=== PATIENT | female | born 2000 | race American Indian/Alaskan Native ===

== ENCOUNTER 2021-03-15 13:33 | Emergency (ER) | payer OTHER, MEDICAID ==
[2021-03-15 17:00] VITALS: BP 113/77
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
== END 2021-03-15 18:20 | disposition home or self-care (01) ==
LOC: ED 13:33
DX: M54.2 Cervicalgia (principal); M54.5 Low back pain; Z98.890 Other specified postprocedural states; F17.200 Nicotine dependence, unspecified, uncomplicated; V89.2XXA Person injured in unspecified motor-vehicle accident, traffic, initial encounter; Y93.89 Activity, other specified; Y92.89 Other specified places as the place of occurrence of the external cause; Y99.8 Other external cause status
CPT/HCPCS: 99282

== ENCOUNTER 2021-05-02 18:25 | Emergency (ER) | payer MEDICAID, OTHER ==
--- NOTE | 2021-05-02 20:07 | Emergency Department Report ---
ED General Adult HPI - General Stated complaint: NO PERIOD 2 MO, CANT KEEP FOOD DOWN Time Seen by Provider: 05/02/21 20:05 - History of Present Illness Initial comments: 20-year-old female this emerge department complaining of having no. Since March 01 and presents emerge department seeking appendicitis. Patient states that rather than spending money for a test [id number] she will come to the emergency department and use her Medicaid she reports no pain, no fever, chills, sweats no vaginal bleeding, no vaginal discharge no no dysuria no hematuria no diarrhea no pelvic pain Improves with: none Worsens with: none Associated Symptoms: denies other symptoms - Related Data Previous Rx's Medication Instructions Recorded Last Taken Type Naproxen 500 mg PO BID PRN #20 tablet 03/15/21 Unknown Rx methocarbamoL [Methocarbamol] 750 mg PO TID PRN #15 tablet 03/15/21 Unknown Rx Allergies Allergy/AdvReac Type Severity Reaction Status Date / Time No Known Allergies Allergy Unverified 03/15/21 16:52 ED Review of Systems ROS: Stated complaint: NO PERIOD 2 MO, CANT KEEP FOOD DOWN Other details as noted in HPI Comment: All other systems reviewed and negative ED Past Medical Hx - Past Medical History Additional medical history: Vaginal delivery x 2 - Social History Smoking Status: Current Every Day Smoker Substance Use Type: Alcohol - Medications Home Medications: Home Medications Medication Instructions Recorded Confirmed Last Taken Type Naproxen 500 mg PO BID PRN #20 tablet 03/15/21 Unknown Rx methocarbamoL [Methocarbamol] 750 mg PO TID PRN #15 tablet 03/15/21 Unknown Rx ED Physical Exam - General General appearance: alert, in no apparent distress - Head Head exam: Present: atraumatic, normocephalic - Eye Eye exam: Present: normal appearance - ENT ENT exam: Present: mucous membranes moist - Neck Neck exam: Present: normal inspection - Respiratory Respiratory exam: Present: normal lung sounds bilaterally. Absent: respiratory distress - Cardiovascular Cardiovascular Exam: Present: regular rate, normal rhythm. Absent: systolic murmur, diastolic murmur, rubs, gallop - GI/Abdominal GI/Abdominal exam: Present: soft, normal bowel sounds - Extremities Exam Extremities exam: Present: normal inspection - Back Exam Back exam: Present: normal inspection - Neurological Exam Neurological exam: Present: alert, oriented X3 - Psychiatric Psychiatric exam: Present: normal affect, normal mood - Skin Skin exam: Present: warm, dry, intact, normal color. Absent: rash ED Course Vital Signs 05/02/21 05/02/21 05/02/21 20:01 21:08 21:10 Temperature 99.2 F 97.5 F L Pulse Rate 75 75 Respiratory 16 14 Rate Blood Pressure 120/69 Blood Pressure 137/77 [Right] O2 Sat by Pulse 100 98 99 Oximetry Critical care attestation.: If time is entered above; I have spent that time in minutes in the direct care of this critically ill patient, excluding procedure time. ED Disposition Clinical Impression: Positive test Disposition: HOME / SELF CARE / HOMELESS Is pt being admited?: No Does the pt Need Aspirin: No Condition: Stable Instructions: Home Test Information, Care Referrals: [facility] [Provider Group] - 3-5 Days
[2021-05-02 21:10] VITALS: BP 137/77
[2021-05-02 21:19] LABS: HCG Qualitative,Urine Positive (Negative)
== END 2021-05-02 22:06 | disposition home or self-care (01) ==
LOC: ED 18:25
DX: Z32.01 Encounter for pregnancy test, result positive (principal); F17.200 Nicotine dependence, unspecified, uncomplicated
CPT/HCPCS: 81025; 99283

== ENCOUNTER 2021-05-15 19:24 | Emergency (ER) | payer MEDICAID ==
[2021-05-15] MEDS ORDERED: SODIUM CHLORIDE 0.9% 1000 ML 1,000 ML IV ONE (20:31)
[2021-05-15] MEDS ORDERED: METOCLOPRAMIDE 10 MG/2 ML INJ IV ONE (20:31)
--- NOTE | 2021-05-15 20:35 | Emergency Department Report ---
ED N/V/D HPI - General Chief complaint: Nausea/Vomiting/Diarrhea Stated complaint: 7WKS PREG/EMESIS/NAUSEA Time Seen by Provider: 05/15/21 20:27 Source: patient, family Mode of arrival: Ambulatory Limitations: No Limitations - History of Present Illness Initial comments: Patient presents with a 3-week history of nausea, vomiting, and diarrhea. She states that she has not had fevers or chills. There is no history of recent travel or trauma. She is at 7 weeks. She is already gone to her scoop driver. She states that they gave her a prescription of "a little pill that made it worse." She only tried it once and has not taken that medicine again. She does not know the name of it. Patient states that they did do an ultrasound and the was in the uterus. She has not had any vaginal bleeding. There is no discharge. She has had no dysuria frequency. She is not having abdominal pain associate with this. There has been no hematemesis or coffee-ground emesis. There is no melanotic stool. - Related Data Previous Rx's Medication Instructions Recorded Last Taken Type Metoclopramide [Reglan] 10 mg PO ACHS PRN #30 tablet 05/15/21 Unknown Rx Allergies Allergy/AdvReac Type Severity Reaction Status Date / Time No Known Allergies Allergy Unverified 03/15/21 16:52 ED Review of Systems ROS: Stated complaint: 7WKS PREG/EMESIS/NAUSEA Other details as noted in HPI Comment: All other systems reviewed and negative Eyes: denies: vision change ENT: denies: throat pain Respiratory: denies: cough Cardiovascular: denies: chest pain Endocrine: denies: unexplained weight loss Gastrointestinal: as per HPI Genitourinary: denies: dysuria Musculoskeletal: denies: back pain Skin: denies: rash Neurological: denies: headache Hematological/Lymphatic: denies: easy bruising ED Past Medical Hx - Past Medical History Previous Medical History?: No Additional medical history: Vaginal delivery x 2 - Surgical History Past Surgical History?: No - Family History Family history: no significant - Social History Smoking Status: Current Every Day Smoker (We discussed tobacco cessation x3 minutes) Substance Use Type: Alcohol - Medications Home Medications: Home Medications Medication Instructions Recorded Confirmed Last Taken Type Metoclopramide [Reglan] 10 mg PO ACHS PRN #30 tablet 05/15/21 Unknown Rx ED Physical Exam - General Limitations: No Limitations, Other (Pulse ox is noted to normal. She is not hypoxic.) General appearance: alert, in no apparent distress - Head Head exam: Present: atraumatic, normocephalic, normal inspection - Eye Eye exam: Present: normal appearance, EOMI. Absent: scleral icterus - ENT ENT exam: Present: mucous membranes dry, normal external ear exam - Neck Neck exam: Present: normal inspection. Absent: meningismus - Respiratory Respiratory exam: Present: normal lung sounds bilaterally. Absent: respiratory distress - Cardiovascular Cardiovascular Exam: Present: regular rate, normal rhythm - GI/Abdominal GI/Abdominal exam: Present: soft. Absent: tenderness, guarding, rebound - Extremities Exam Extremities exam: Present: normal capillary refill. Absent: calf tenderness - Back Exam Back exam: Absent: CVA tenderness (R), CVA tenderness (L) - Neurological Exam Neurological exam: Present: alert, oriented X3, CN II-XII intact, normal gait, reflexes normal. Absent: motor sensory deficit - Psychiatric Psychiatric exam: Present: normal affect, normal mood - Skin Skin exam: Present: warm, dry ED Course Vital Signs 05/15/21 05/15/21 05/15/21 20:01 21:04 22:15 Temperature 98.8 F Pulse Rate 82 72 Respiratory 18 9 L 18 Rate Blood Pressure 108/69 Blood Pressure 114/76 [Left] O2 Sat by Pulse 100 100 100 Oximetry 05/15/21 22:18 Temperature Pulse Rate Respiratory Rate Blood Pressure Blood Pressure [Left] O2 Sat by Pulse 100 Oximetry - Reevaluation(s) Reevaluation #1: 05/15/21 20:33 IV metoclopramide were ordered. Reevaluation #2: 05/15/21 22:34 Patient tolerated liquids and was discharged. ED Medical Decision Making - Medical Decision Making Patient presents with nausea, vomiting, and diarrhea for 3 weeks. She states that she is . She is already had an outpatient ultrasound that confirms and confirms intrauterine nature of the . She is not having any abdominal pain. I do not believe repeat ultrasound is necessary. She has no dysuria or frequency. I do not believe UA is necessary at this time. Patient has been given hydration here. We have found medication that she can utilize at home. Critical Care Time: No Critical care attestation.: If time is entered above; I have spent that time in minutes in the direct care of this critically ill patient, excluding procedure time. ED Disposition Clinical Impression: Nausea vomiting and diarrhea Qualifiers: Weeks of gestation: less than 8 weeks Qualified Code(s): Z3A.01 - Less than 8 weeks gestation of Disposition: HOME / SELF CARE / HOMELESS Is pt being admited?: No Condition: Stable Instructions: Before Baby Comes Home, Food Choices to Help Relieve Diarrhea, Adult, How a Baby Grows During , Eating Plan for Women, Nausea and Vomiting, Adult Additional Instructions: Have a bland diet. Drink plenty of water. Return for problems. Follow-up with your regular doctor and your scoop driver for recheck. Prescriptions: Metoclopramide [Reglan] 10 mg PO ACHS PRN #30 tablet PRN Reason: Nausea Referrals: PRIMARY CARE, [Referring] - 3-5 Days VENU AU MD [Staff Physician] - 3-5 Days
[2021-05-15 22:18] VITALS: BP 114/76
== END 2021-05-15 22:52 | disposition home or self-care (01) ==
LOC: ED 19:24
DX: O21.8 Other vomiting complicating pregnancy (principal); O26.891 Other specified pregnancy related conditions, first trimester; Z3A.01 Less than 8 weeks gestation of pregnancy; R19.7 Diarrhea, unspecified
CPT/HCPCS: 96361; 96374; 99282; J2765; J7030

== ENCOUNTER 2022-03-03 09:49 | Emergency (ER) | payer MEDICAID ==
--- NOTE | 2022-03-03 11:16 | Emergency Department Report ---
Stated Complaint: BODY HURTS AFTER TAKING XPILLS Time Seen by Provider: 03/03/22 11:12 - HPI History of Present Illness: 21-year-old black female with no past medical history presents to the emergency department for evaluation of chest pain, body aches, chills, intermittent shortness of breath. She states that she took an ecstasy pill 5 days ago and has been having symptoms since then. She states that her boyfriend took the same pill and has been having the same symptoms. She denies fever, dizziness. - ROS Review of Systems: Complains of generalized chest pain, body aches and shortness of breath. Denies fever. - Exam Physical Exam: Awake alert and oriented x4. MSE screening note: Focused history and physical exam performed. Due to findings the following was ordered: EKG, CBC, CMP, troponin, and chest x- ray. . Patient evaluated by provider when she arrived to her room in the back. ED Disposition for MSE Condition: Stable
--- NOTE | 2022-03-03 11:55 | XRay Report ---
XR chest routine 2V INDICATION / CLINICAL INFORMATION: chest pain. COMPARISON: None available. FINDINGS: SUPPORT DEVICES: None. HEART /PULMONARY VASCULATURE: No significant abnormality. LUNGS / PLEURA: No significant pulmonary or pleural abnormality. No pneumothorax. ADDITIONAL FINDINGS: No significant additional findings. IMPRESSION: 1. No acute findings. Signer Name: Warren Bailey MD Signed: 03/03/2022 11:50 AM Workstation Name: [id number]
[2022-03-03 12:18] LABS: Hematocrit 39.9 % (30.3-42.9); Hemoglobin 12.7 gm/dl (10.1-14.3); Mean Corpuscular HGB Conc 32 % (30-34); Mean Corpuscular Volume 78 fl (79-97); Platelet Count 165 K/mm3 (140-440); Red Blood Count 5.09 M/mm3 (3.65-5.03)
[2022-03-03 12:26] LABS: Red Cell Distribution Width 20.7 % (13.2-15.2)
[2022-03-03 12:28] LABS: Alanine Aminotransferase 23 units/L (7-56); Albumin 4.3 g/dL (3.9-5); BUN/Creatinine Ratio 13; Blood Urea Nitrogen 21 mg/dL (7-17); Calcium 9.5 mg/dL (8.4-10.2); Hemolysis Index 6
[2022-03-03] MEDS ORDERED: LORazepam 2 MG/ML VIAL IV ONE (13:13)
[2022-03-03] MEDS ORDERED: KETOROLAC 30 MG/1 ML INJ IV ONE (13:13)
[2022-03-03] MEDS ORDERED: ONDANSETRON 4 MG/2 ML INJ IV ONE (13:13)
[2022-03-03] MEDS ORDERED: SODIUM CHLORIDE 0.9% 1000 ML 1,000 ML IV ONE (13:14)
[2022-03-03] MEDS ORDERED: MORPHINE 4 MG/1 ML INJ IV ONE (13:14)
--- NOTE | 2022-03-03 15:55 | Emergency Department Report ---
ED General Adult HPI - General Chief complaint: Chest Pain Stated complaint: BODY HURTS AFTER TAKING XPILLS Time Seen by Provider: 03/03/22 11:12 Source: patient Mode of arrival: Ambulatory Limitations: No Limitations - History of Present Illness Initial comments: Patient is a 21-year-old female with a history of anxiety who presents to the ED with complaint of diffuse body aches and pains, shortness of breath, headache after taking "ecstasy pills" about 5 days ago. Patient states that she has also been feeling generalized weakness and fatigue and lack of appetite. Patient denies dizziness, syncope, chest pain and hemoptysis, cough, sore throat, abdominal pain, dysuria, urinary frequency and urgency, change in vision, vaginal bleeding or lightheadedness. MD Complaint: Diffuse body aches and pains, nausea, shortness of breath, anxiety -: days(s) (5) Location: chest Radiation: non-radiation Severity scale (0 -10): 8 Quality: aching, sharp Consistency: constant Improves with: none Worsens with: none Associated Symptoms: denies other symptoms, loss of appetite, malaise, shortness of breath. denies: confusion, chest pain, cough, diaphoresis, fever/chills, headaches, nausea/vomiting, rash, seizure, syncope, weakness Treatments Prior to Arrival: none - Related Data Previous Rx's Medication Instructions Recorded Last Taken Type Metoclopramide [Reglan] 10 mg PO ACHS PRN #30 tablet 05/15/21 Unknown Rx Acetaminophen [Tylenol] 500 mg PO Q6HR PRN #30 tablet 03/03/22 Unknown Rx Ondansetron [Zofran Odt] 4 mg PO Q8HR PRN #15 tab.rapdis 03/03/22 Unknown Rx cephALEXin [Keflex] 500 mg PO Q6HR #40 capsule 03/03/22 Unknown Rx hydrOXYzine PAMOATE [Vistaril] 25 mg PO Q6HR PRN #40 capsule 03/03/22 Unknown Rx Allergies Allergy/AdvReac Type Severity Reaction Status Date / Time No Known Allergies Allergy Verified 03/03/22 11:21 ED Review of Systems ROS: Stated complaint: BODY HURTS AFTER TAKING XPILLS Other details as noted in HPI Constitutional: malaise, weakness. denies: chills, fever Eyes: denies: eye pain, eye discharge, vision change ENT: denies: ear pain, throat pain Respiratory: shortness of breath. denies: cough, wheezing Cardiovascular: denies: chest pain, palpitations Endocrine: no symptoms reported Gastrointestinal: denies: abdominal pain, nausea, vomiting, diarrhea Genitourinary: denies: urgency, dysuria, discharge Musculoskeletal: back pain, arthralgia, myalgia. denies: joint swelling Skin: denies: rash, lesions Neurological: headache. denies: weakness, paresthesias Psychiatric: anxiety. denies: depression, auditory hallucinations, visual hallucinations, suicidal thoughts Hematological/Lymphatic: denies: easy bleeding, easy bruising ED Past Medical Hx - Past Medical History Previous Medical History?: Yes Hx Psychiatric Treatment: Yes (Anxiety) Additional medical history: Vaginal delivery x 2 - Surgical History Past Surgical History?: No - Social History Smoking Status: Never Smoker - Medications Home Medications: Home Medications Medication Instructions Recorded Confirmed Last Taken Type Metoclopramide [Reglan] 10 mg PO ACHS PRN #30 tablet 05/15/21 Unknown Rx Acetaminophen [Tylenol] 500 mg PO Q6HR PRN #30 tablet 03/03/22 Unknown Rx Ondansetron [Zofran Odt] 4 mg PO Q8HR PRN #15 tab.rapdis 03/03/22 Unknown Rx cephALEXin [Keflex] 500 mg PO Q6HR #40 capsule 03/03/22 Unknown Rx hydrOXYzine PAMOATE [Vistaril] 25 mg PO Q6HR PRN #40 capsule 03/03/22 Unknown Rx ED Physical Exam - General Limitations: No Limitations General appearance: alert, in no apparent distress - Head Head exam: Present: atraumatic, normocephalic, normal inspection - Eye Eye exam: Present: normal appearance, PERRL, EOMI Pupils: Present: normal accommodation - ENT ENT exam: Present: normal exam, normal orophraynx, mucous membranes moist, TM's normal bilaterally, normal external ear exam - Neck Neck exam: Present: normal inspection, full ROM. Absent: tenderness - Respiratory Respiratory exam: Present: normal lung sounds bilaterally. Absent: respiratory distress, wheezes, rales, rhonchi, stridor, chest wall tenderness, accessory muscle use, decreased breath sounds, prolonged expiratory - Cardiovascular Cardiovascular Exam: Present: normal rhythm, tachycardia, normal heart sounds. Absent: systolic murmur, diastolic murmur, rubs, gallop - GI/Abdominal GI/Abdominal exam: Present: soft, normal bowel sounds. Absent: distended, tenderness, guarding, rebound, hyperactive bowel sounds, hypoactive bowel sounds, organomegaly - Extremities Exam Extremities exam: Present: normal inspection, full ROM, normal capillary refill. Absent: tenderness, pedal edema, joint swelling, calf tenderness - Back Exam Back exam: Present: normal inspection, full ROM. Absent: tenderness, CVA tenderness (R), CVA tenderness (L), muscle spasm, paraspinal tenderness, vertebral tenderness, rash noted - Neurological Exam Neurological exam: Present: alert, oriented X3, CN II-XII intact, normal gait, reflexes normal - Psychiatric Psychiatric exam: Present: normal affect, normal mood, anxious - Skin Skin exam: Present: warm, dry, intact, normal color. Absent: rash ED Course Vital Signs 03/03/22 03/03/22 03/03/22 11:17 16:42 16:48 Temperature 98.1 F 102.6 F H Pulse Rate 145 H 116 H 116 H Respiratory 20 18 18 Rate Blood Pressure 128/82 Blood Pressure 127/75 128/82 [Right] O2 Sat by Pulse 100 100 100 Oximetry ED Medical Decision Making - Lab Data Result diagrams: 03/03/22 11:52 03/03/22 11:52 - Radiology Data Radiology results: report reviewed, image reviewed [facility] [address] [place] [address] XRay Report Signed Patient: TANVI MCKINNEY MR#: [id number] : 2000 Acct:[id number] Age/Sex: 21 / F ADM Date: 03/03/22 Loc: ED Attending Dr: Ordering Physician: EVERARDO SELBY Date of Service: 03/03/22 Procedure(s): XR chest routine 2V Accession Number(s): [id number] cc: EVERARDO SELBY Fluoro Time In Minutes: XR chest routine 2V INDICATION / CLINICAL INFORMATION: chest pain. COMPARISON: None available. FINDINGS: SUPPORT DEVICES: None. HEART /PULMONARY VASCULATURE: No significant abnormality. LUNGS / PLEURA: No significant pulmonary or pleural abnormality. No pneumothorax. ADDITIONAL FINDINGS: No significant additional findings. IMPRESSION: 1. No acute findings. Signer Name: Ladonna Bailey MD Signed: 03/03/2022 11:50 AM Workstation Name: [id number] Transcribed By: JS Dictated By: LADONNA BAILEY MD Electronically Authenticated By: LADONNA BAILEY MD Signed Date/Time: 03/03/221149 DD/ 49 TD/TT: Print - Medical Decision Making This is a 21-year-old female with a history of anxiety who presents to the ED with complaint of diffuse body aches and pains, shortness of breath, headache after taking "ecstasy pills" about 5 days ago. Patient states that she has also been feeling generalized weakness and fatigue and lack of appetite. In the ED, patient is alert and oriented x3 and is not in any distress. Patient however appears to be anxious and tachycardic and febrile in triage. In the ED, patient was treated with normal saline 1 L IV bolus x1. Patient was also treated with antipyretics. Rapid influenza and rapid strep test were negative. All lab test results were reviewed and showed acute leukocytosis of 13,100, BUN of 21 and creatinine of 1.6 and urinalysis showed significant urinary tract infection. Patient also received Rocephin 1 g IV x1. On reevaluation, patient felt better, fever resolved and tachycardia also resolved. Patient was discharged home on medications and advised to follow-up with with her primary care physician in 7 to 10 days for reevaluation. Patient is advised to return to the ED immediately if symptoms get worse. - Differential Diagnosis Drug abuse; URI; viral syndrome; dehydration; UTI;; influenza; COVID-19 Critical care attestation.: If time is entered above; I have spent that time in minutes in the direct care of this critically ill patient, excluding procedure time. ED Disposition Clinical Impression: Anxiety as acute reaction to exceptional stress, Polysubstance abuse, Acute urinary tract infection, Fever and chills, Acute dehydration Disposition: 01 HOME / SELF CARE / HOMELESS Is pt being admited?: No Does the pt Need Aspirin: No Condition: Stable Instructions: Dehydration, Adult, [id number], Urinary Tract Infection, Adult, [id number], Generalized Anxiety Disorder, Adult, Fever, Adult, [id number], Substance Use Disorder and Mental Illness Additional Instructions: All lab test results were reviewed and are all nonactionable. Therefore take medication with food, drink plenty of fluids and follow-up with your primary care physician in 7 to 10 days for reevaluation. Return to the ED immediately if symptoms get worse Prescriptions: Acetaminophen [Tylenol] 500 mg PO Q6HR PRN #30 tablet PRN Reason: Pain , Severe (7-10) cephALEXin [Keflex] 500 mg PO Q6HR #40 capsule hydrOXYzine PAMOATE [Vistaril] 25 mg PO Q6HR PRN #40 capsule PRN Reason: Anxiety Ondansetron [Zofran Odt] 4 mg PO Q8HR PRN #15 tab.rapdis PRN Reason: Nausea Referrals: GIGI LAO MD [Primary Care Provider] - 3-5 Days Forms: Work/School Release Form(ED) Time of Disposition: 18:57 Print Language: KINYARWANDA
[2022-03-03] MEDS ORDERED: ACETAMINOPHEN 500 MG TAB PO ONE (16:33)
[2022-03-03] MEDS ORDERED: IBUPROFEN 600 MG TAB PO ONE (16:33)
[2022-03-03 16:47] VITALS: BP 128/82
[2022-03-03 17:27] LABS: Color,Urine Yellow (Yellow); WBC,Urine > 182.0 /HPF (0.0-6.0)
[2022-03-03 17:28] LABS: Bilirubin,Urine Negative (Negative)
[2022-03-03 17:29] LABS: Blood,Urine Moderate (Negative)
[2022-03-03 17:30] LABS: Urobilinogen,Urine < 2.0 mg/dL (<2.0)
[2022-03-03 17:33] LABS: HCG Qualitative,Urine Negative (Negative)
[2022-03-03] MEDS ORDERED: cefTRIAXone/NS 1 GM/50 ML 1 GM/50 ML BAG IV ONE (18:26)
--- NOTE | 2022-03-04 13:44 | Electrocardiograph Report ---
[facility] Test Date: 2022-03-03 Test Time: 11:24:34 Pat Name: TANVI MCKINNEY Department: Room: Gender: F Mail Distribution Clerk: ERIBERTO : 2000 Requested By: SUKHWINDER STANTON Order Number: [id number] Reading MD: Jm Alex Measurements Intervals [place] Rate: 125 P: 54 RI: 156 QRS: 33 QRSD: 86 T: 12 QT: 294 QTc: 424 Interpretive Statements Sinus tachycardia No previous ECG available for comparison Electronically Signed On 03-04-2022 13:44:32 EDT by Jm Alex
== END 2022-03-03 20:12 | disposition home or self-care (01) ==
LOC: ED 09:49
DX: F41.1 Generalized anxiety disorder (principal); F43.0 Acute stress reaction; N39.0 Urinary tract infection, site not specified; E86.0 Dehydration; R50.9 Fever, unspecified; F19.10 Other psychoactive substance abuse, uncomplicated
CPT/HCPCS: 36415; 71046; 80053; 81001; 81025; 84484; 85027; 87116; 87430; 87502; 93005; 96361; 96365; 96375; 99284; J0696; J2060; J2270; J2405; J7030